=== PATIENT | male | born 1975 | race Two or more races ===

== ENCOUNTER 2024-08-11 11:02 | Emergency (ER) | payer MEDICAID, SELFPAY ==
[2024-08-11 11:09] VITALS: BP 142/93; PULSE 93; RESP 16; TEMP 36.9; O2SAT 100; BMI 32.3
--- NOTE | 2024-08-11 11:42 | PD.EDRME ---
Rapid Medical Screening Exam RME Arrival date/time: 08/11/24 11:02 This is a 49-year-old male who presents to the emergency department with complaints of right upper quadrant abdominal pain x 3 days. I have greeted and performed a focused initial assessment of this patient. Initial appropriate labs ordered at this time. A comprehensive ED assessment and evaluation of the patient and analysis of all test and completion of medical decision making process will be conducted by additional ED provider. Chief Complaint: Abdominal Pain Time Seen by Provider: 08/11/24 11:16 Vital signs: Vital Signs Temperature 98.5 F 08/11/24 11:09 Pulse Rate 93 08/11/24 11:09 Respiratory Rate 16 08/11/24 11:09 Blood Pressure 142/93 H 08/11/24 11:09 Pulse Oximetry (%) 100 08/11/24 11:09 Oxygen Delivery Method Room Air 08/11/24 11:09
--- NOTE | 2024-08-11 11:43 | XR_ITS ---
Examination: Abdomen sonogram, Limited Date and time of exam: August 11, 2024 at 11:57 AM INDICATIONS: Right upper abdominal pain beginning today Technique: Real-time rodas scale transabdominal sonographic images of the upper abdomen obtained. Findings: Normal gallbladder Normal common bile duct 0.2 cm Pancreatic head 3.4 cm Liver 16.7 cm 25 mm liver cyst fatty infiltration Normal hepatopedal portal venous flow Patent IVC IMPRESSION: Normal gallbladder Normal common bile duct Mild hepatomegaly fatty liver
[2024-08-11 12:03] LABS: Basophils # (Auto) 0.1 Thou/mm3 (0.0-0.2); Basophils % (Auto) 1 % (0-2.5); Eosinophils # (Auto) 0.2 Thou/mm3 (0.0-0.5); Eosinophils % (Auto) 2 % (0-10); Hematocrit 48.2 % (41.0-53.0); Hemoglobin 16.4 g/dL (13.5-16.0); Immature Granulocytes % (Auto) 0 % (0-0); Immature Granulocytes Auto 0.03 Thou/mm3 (0.00-0.00); Lymphocytes # (Auto) 3.1 Thou/mm3 (1.0-4.8); Lymphocytes % (Auto) 34 % (10-50); Mean Corpuscular Hemoglobin 29.7 pg (25.0-35.0); Mean Corpuscular Volume 87 fL (80-100); Monocytes # (Auto) 0.6 Thou/mm3 (0.0-0.8); Monocytes % (Auto) 7 % (0-12); Neutrophils # (Auto) 5.1 Thou/mm3 (1.8-7.7); Neutrophils % (Auto) 56 % (37-80); Nucleated Red Blood Cell % 0 /100 WBC (0); Platelet Count 245 Thou/mm3 (140-440); RDW Standard Deviation 40.4 fL (35.1-43.9); Red Blood Count 5.52 Miln/mm3 (4.50-5.90); White Blood Count 9.1 Thou/mm3 (3.8-10.6)
[2024-08-11 12:24] LABS: Alanine Aminotransferase 41 U/L (10-49); Albumin/Globulin Ratio 2.1 (1.2-2.2); Alkaline Phosphatase 106 U/L (46-116); Anion Gap 11 (7-16); Aspartate Amino Transferase 37 U/L (0-34); BUN/Creatinine Ratio 10 Ratio (12-20); Bilirubin,Total 0.4 mg/dL (0.3-1.2); Blood Urea Nitrogen 8 mg/dL (9-23); Calcium 9.6 mg/dL (8.3-10.6); Calcium (Corrected) 9.6 mg/dL (8.5-10.1); Carbon Dioxide 24.4 mMol/L (20.0-31.0); Chloride 103 mMol/L (98-107); Creatinine (Component) 0.8 mg/dL (0.6-1.3); Estimated Creatinine Clearance 117.8 mL/min (>60); Globulin 2.4 gm/dL (2.3-3.5); Glucose 160 mg/dL (74-106); Lipase 49 U/L (12-53); Osmolality,Calculated 276 (275-295); Potassium 3.8 mMol/L (3.4-5.1); Sodium 138 mMol/L (136-145); Total Protein 7.4 gm/dL (5.7-8.2); eGFR > 60 See Note
[2024-08-11 12:43] LABS: Collection Type, Urine Clean Catch
[2024-08-11 12:45] LABS: Bilirubin,Urine Negative (Negative); Blood,Urine Negative (Negative); Clarity,Urine Clear (Clear/Hazy); Color,Urine Colorless (Lt Yel-Yel); Glucose, Urine Negative (Negative); Ketones,Urine Negative (Negative); Leukocyte Esterase,Urine Negative (Negative); Nitrite,Urine Negative (Negative); Protein,Urine Negative (Neg - Trace); RBC,Urine 1 /hpf (0-3); Specific Gravity,Urine 1.009 (1.001-1.035); Squamous Epithelial Cell,Urine < 1 /hpf (0-5); Urobilinogen,Urine Negative mg/dL (0.0-1.0); WBC,Urine < 1 /hpf (0-5)
--- NOTE | 2024-08-11 15:12 | EDNOTE_ITS ---
ED General RME/HPI General Chief complaint: Abdominal Pain Stated complaint: RIGHT RIB PAIN ESPECIALLY AFTER EATING Time Seen by Provider: 08/11/24 11:16 Arrival date/time: 08/11/24 11:02 RME / HPI RME / HPI narrative: RME: 08/11/24 11:02 This is a 49-year-old male who presents to the emergency department with complaints of right upper quadrant abdominal pain x 3 days. EPHRAIM HPI: 49-year-old male with a history of chronic abdominal pain who presents with epigastric to right upper quadrant pain after eating pizza last night. Pain starts in the epigastric region feeling like a spasm/cramp and then migrates to the right side and right flank region where it feels sharp. He does also note some increase in pain with deep breath. He denies nausea vomiting and diarrhea. He denies fevers chills or sweats. He denies chest pain or shortness of breath. Related Data Previous Rx's ?Medication ?Instructions ?Recorded hydrocodone 5 mg-acetaminophen 325 1 tab PO TID PRN pain #15 tabs 07/22/22 mg tablet ondansetron HCl 4 mg tablet 4 mg PO TID PRN nausea and 07/22/22 vomiting #14 tabs azithromycin 250 mg tablet See Rx Instructions PO .COMPLEX #6 08/12/22 tabs famotidine 20 mg tablet 20 mg PO BID #14 tabs 08/11/24 Allergies Allergy/AdvReac Type Severity Reaction Status Date / Time NKA* Allergy Uncoded 08/11/24 11:04 Review of Systems Review of Systems Systems Reviewed: All systems reviewed, normal except as documented ED Exam Narrative Physical exam: GENERAL APPEARANCE: AxOx4, generally well-appearing, no acute distress. HEENT: NC, AT. MMM. EOMI, clear conjunctiva, oropharynx clear. NECK: Supple without lymphadenopathy. No stiffness or restricted ROM. HEART: Normal rate and regular rhythm, normal S1/S1, no m/r/g LUNGS: CTAB, moving air well. No crackles or wheezes are heard. ABDOMEN: Soft, mild right upper quadrant/right side tenderness, negative Wen sign, nondistended with good bowel sounds heard. BACK: No midline C/T/L spine pain or deformity, No CVAT, no obvious deformity. EXTREMITIES: Without cyanosis, clubbing or edema. MUSCULOSKELETAL: FROM of all major joints, no chest tenderness NEUROLOGICAL: Grossly nonfocal. Alert and oriented, moving all 4 extremities. CN not formally tested but appear grossly intact. Observed to ambulate with normal gait. Skin: Warm and dry without any rash. Course Quality Measures none Orders Category Date Time Status US gall bladder Stat Exams 08/11/24 11:43 Completed CBC Stat Lab 08/11/24 11:53 Completed Comprehensive Metabolic Panel Stat Lab 08/11/24 11:53 Completed Lipase Stat Lab 08/11/24 11:53 Completed Urinalysis Stat Lab 08/11/24 12:32 Completed Vital Signs Vital signs: Vital Signs Temperature 98.5 F 08/11/24 11:09 Pulse Rate 93 08/11/24 11:09 Respiratory Rate 16 08/11/24 11:09 Blood Pressure 142/93 H 08/11/24 11:09 Pulse Oximetry (%) 100 08/11/24 11:09 Oxygen Delivery Method Room Air 08/11/24 11:09 SpO2 100% on room air, not hypoxic MDM Patient data External records reviewed:: [facility] previous records (ER visit 07/21/2023 with similar, workup negative biliary disease) Clinical information provided by:: patient Social determinants that could affect healthcare access:: none Patient has the following chronic illnesses:: None How is presenting disease/condition affected by chronic disease/condition?: no chronic disease Evaluation data The following diagnostics were reviewed and interpreted by me:: lab results and radiology exam(s) Lab and/or radiology exams considered but not ordered:: None Interpretation Summary: As per narrative Medications Medications considered but not ordered:: None Medication administrations:: None Consultations Consultation(s) initiated? (list below): No Diagnosis Differential Diagnosis ED Complaint MDM: Cholelithiasis, acute cholecystitis, gastritis, esophagitis, shingles Most likely diagnosis given after review of the tests above:: See below Admission Indicated Admission indicated?: not indicated Explain why admission is indicated or not indicated:: As per narrative Admission Request Was there a request for admission?: No Disposition Plan Disposition Plan: Discharge Discharge Attestation Discharge Attestation: The patient and all family members were given an opportunity to ask questions and understood the discharge instructions. Discharge instructions specifically effects, indications for sooner follow up or return to the emergency department, and the expected course of current diagnosis. Patient condition: Stable Medical Decision Making MDM Narrative MDM Narrative: Mr. Murillo is a pleasant well-appearing gentleman presents with right upper abdominal, right side pain after eating yesterday. Pain is reproducible on exam, but does not have a Wen sign nor does have a rash consistent with shingles. He does not have CVA tenderness on the right side on exam. Laboratory testing sent via the RME process is otherwise unremarkable and significant for a normal white blood cell count, normal liver enzymes. Ultrasound was sent via the RME process which shows a normal gallbladder, no signs of cholelithiasis or acute cholecystitis. As patient is otherwise well- appearing, stable vital signs, has a benign exam, with a negative workup he is appropriate for outpatient follow-up. Will start a short course of antacids, dietary changes, and to follow-up closely with his primary doctor. Differential Diagnosis Differential Diagnosis: Cholelithiasis, acute cholecystitis, gastritis, esophagitis, shingles Lab Data 08/11/24 11:53 08/11/24 11:53 Labs: Lab Results 08/11/24 08/11/24 Range/Units 11:53 12:32 WBC 9.1 (3.8-10.6) Thou/mm3 RBC 5.52 (4.50-5.90) Miln/mm3 Hgb 16.4 H (13.5-16.0) g/dL Hct 48.2 (41.0-53.0) % MCV 87 (80-100) fL MCH 29.7 (25.0-35.0) pg MCHC 34.0 (31.0-37.0) g/dl RDW Std Deviation 40.4 (35.1-43.9) fL Plt Count 245 (140-440) Thou/mm3 Neut % (Auto) 56 (37-80) % Lymph % (Auto) 34 (10-50) % [place] % (Auto) 7 (0-12) % Eos % (Auto) 2 (0-10) % Baso % (Auto) 1 (0-2.5) % Neut # (Auto) 5.1 (1.8-7.7) Thou/mm3 Lymph # (Auto) 3.1 (1.0-4.8) Thou/mm3 [place] # (Auto) 0.6 (0.0-0.8) Thou/mm3 Eos # (Auto) 0.2 (0.0-0.5) Thou/mm3 Baso # (Auto) 0.1 (0.0-0.2) Thou/mm3 Immature Gran # (Auto) 0.03 H (0.00-0.00) Thou/mm3 Absolute Nucleated RBC 0.00 (0.00-0.00) Thou/mm3 Immature Gran % 0 (0-0) % Nucleated RBC % 0 (0) /100 WBC Sodium 138 (136-145) mMol/L Potassium 3.8 (3.4-5.1) mMol/L Chloride 103 (98-107) mMol/L Carbon Dioxide 24.4 (20.0-31.0) mMol/L Anion Gap 11 (7-16) BUN 8 L (9-23) mg/dL Creatinine 0.8 (0.6-1.3) mg/dL Estim Creat Clear Calc 117.8 (>60) mL/min eGFR > 60 (60 - ) See Note BUN/Creatinine Ratio 10 L (12-20) Ratio Glucose 160 H (74-106) mg/dL Calculated Osmolality 276 (275-295) Calcium 9.6 (8.3-10.6) mg/dL Corrected Calcium 9.6 (8.5-10.1) mg/dL Total Bilirubin 0.4 (0.3-1.2) mg/dL AST 37 H (0-34) U/L ALT 41 (10-49) U/L Alkaline Phosphatase 106 (46-116) U/L Total Protein 7.4 (5.7-8.2) gm/dL Albumin 5.0 (3.5-5.0) gm/dL Globulin 2.4 (2.3-3.5) gm/dL Albumin/Globulin Ratio 2.1 (1.2-2.2) Lipase 49 (12-53) U/L Ur Collection Type Clean Catch Urine Color Colorless A (Lt Yel-Yel) Urine Clarity Clear (Clear/Hazy) Urine pH 6.0 (5.0-7.0) Ur Specific [place] 1.009 (1.001-1.035) Urine Protein Negative (Neg - Trace) Urine Glucose (UA) Negative (Negative) Urine Ketones Negative (Negative) Urine Blood Negative (Negative) Urine Nitrite Negative (Negative) Urine Bilirubin Negative (Negative) Urine Urobilinogen (Auto) Negative (0.0-1.0) mg/dL Ur Leukocyte Esterase Negative (Negative) Urine RBC 1 (0-3) /hpf Urine WBC < 1 (0-5) /hpf Ur Squamous Epith Cells < 1 (0-5) /hpf Urine Bacteria None (None) Discharge Plan Plan Patient Disposition: HOME (Self Care) Prescriptions/Referrals Prescriptions/Med Rec: New famotidine 20 mg tablet 20 mg PO BID Qty: 14 0RF No Action hydrocodone-acetaminophen 5-325 mg tablet 1 tab PO TID MDD 3 PRN (Reason: pain) Qty: 15 0RF ondansetron HCl 4 mg tablet 4 mg PO TID PRN (Reason: nausea and vomiting) Qty: 14 0RF azithromycin 250 mg tablet See Rx Instructions .ROUTE .COMPLEX Qty: 6 0RF Rx Instructions: For 250 mg dose pack: take 500 mg today (day 1), then 250 mg for 4 days (days 2-5) Referrals: No Primary/Family,Physician [Primary Care Provider] - In 1 week Problem List Clinical Impression: Abdominal pain Patient/Caregiver Discharge Instructions Education Materials: ED Abdominal Pain Unknown Cause ... Additional Instructions: Danita un seguimiento con soto m?dico de atenci?n primaria en 7 a 10 d?as si los s?ntomas no mejoran. Puede regresar al departamento de emergencias sena pronto katya los s?ntomas empeoren o si nota alg?n problema nuevo y preocupante. Print Language: Estonian Stand Alone Forms: Luiza Award Info., Work/School Release, Patient Portal Info Letter
== END 2024-08-11 15:30 | disposition home or self-care (01) ==
PROVIDERS: Nurse Practitioner Primary Care; Emergency Provider Emergency Medicine
DX: R10.11 Right upper quadrant pain (principal)
CPT/HCPCS: 36415; 76705; 80053; 81001; 83690; 85025; 99284